=== PATIENT | male | born 1995 | race African-American/Black ===

== ENCOUNTER 2021-03-02 22:44 | Emergency (ER) | payer SELFPAY ==
[~2021-03-02] VITALS: Ht 182.9 cm; Wt 73.6 kg
[2021-03-02 23:07] LABS: HEMATOCRIT 40.6 % (42.0-52.0); HEMOGLOBIN 15.5 g/dl (13.5-18.0); MEAN CELL VOLUME 87 fl (80.0-100.0); MEAN CORPUSCULAR HEMOGLOBIN 33 pg (27.0-31.0); MEAN CORPUSCULAR HGB CONC 38 g/dl (33.0-37.0); MEAN PLATELET VOLUME 10.9 fl (7.4-10.4); PLATELET COUNT 243 K/mm3 (130-400); RED BLOOD COUNT 4.66 M/mm3 (4.20-5.60)
[2021-03-02 23:23] LABS: ALBUMIN 4.3 gm/dL (3.5-5.0); BILIRUBIN,TOTAL 1.4 mg/dL (0.2-1.2); CALCIUM 9.6 mg/dL (8.4-10.2); CREATININE, serum 1.19 mg/dL (0.72-1.25); POTASSIUM 3.4 mmol/L (3.5-4.5); TOTAL PROTEIN 7.3 gm/dL (6.2-8.1)
[2021-03-02 23:37] LABS: LYMPHOCYTE 4 % (20.0-51.0); NEUTROPHILS 86 % (42.0-75.2); PLATELET ESTIMATE NORMAL (NORMAL)
[2021-03-02 23:50] LABS: COLLECTION METHOD CLEAN CATCH
[2021-03-02 23:55] LABS: MUCOUS Present /lpf; PH 7 (5-8); SQUAMOUS EPITHELIAL None Seen /hpf; URINE APPEARANCE Clear; URINE BACTERIA None Seen /hpf; URINE BILIRUBIN Negative (NEGATIVE); URINE BLOOD Negative (NEGATIVE); URINE COLOR Yellow; URINE GLUCOSE Negative (NEGATIVE); URINE KETONE 2+ (NEGATIVE); URINE LEUKOCYTE ESTERASE Negative (NEGATIVE); URINE NITRATE Negative (NEGATIVE); URINE PROTEIN(semi-quant) Negative (NEGATIVE); URINE RBC None Seen /hpf; URINE UROBILINOGEN >=4.0 mg/dL (NEGATIVE)
[2021-03-03 00:36] VITALS: BP 120/64; PULSE 72; TEMP 97.2
== END 2021-03-03 00:46 | disposition home or self-care (01) ==
LOC: COL.ER 22:44
PROVIDERS: Physician Assistant
DX: E86.0 Dehydration (principal); M62.838 Other muscle spasm; R11.2 Nausea with vomiting, unspecified; J45.909 Unspecified asthma, uncomplicated; F17.210 Nicotine dependence, cigarettes, uncomplicated
CPT/HCPCS: J7030

== ENCOUNTER 2021-10-22 12:58 | Emergency (ER) | payer SELFPAY ==
[~2021-10-22] VITALS: Ht 182.9 cm; Wt 70.5 kg
[2021-10-22 13:03] VITALS: BP 159/97; TEMP 98.8
[2021-10-22] MEDS ORDERED: OXY IR5 MG PO (13:33)
[2021-10-22 14:05] VITALS: PULSE 86
== END 2021-10-22 14:05 | disposition home or self-care (01) ==
LOC: COL.ER 12:58
DX: S62.306A Unspecified fracture of fifth metacarpal bone, right hand, initial encounter for closed fracture (principal); F17.210 Nicotine dependence, cigarettes, uncomplicated; Z28.310 Unvaccinated for COVID-19; W22.8XXA Striking against or struck by other objects, initial encounter